=== PATIENT | female | born 1945 | race Caucasian/White ===

== ENCOUNTER 2023-04-17 17:34 | Inpatient (IN) | payer MEDICARE, OTHER ==
[~2023-04-17] VITALS: Ht 162.6 cm; Wt 65.3 kg
[2023-04-17] MEDS ORDERED: IPRA0.2S48 NEB (17:54)
[2023-04-17] MEDS ORDERED: BLOO-1152 MC (17:54)
[2023-04-17] MEDS ORDERED: ALBU2.5V13 IH (17:54)
[2023-04-17] MEDS ORDERED: MEMA10TA PO (17:54)
[2023-04-17] MEDS ORDERED: CITA20TA19 PO (17:54)
[2023-04-17] MEDS ORDERED: METO50TA7 PO (17:54)
[2023-04-17] MEDS ORDERED: ONDA4TAB5 PO (17:54)
[2023-04-17] MEDS ORDERED: BUDE0.5A4 IH (17:54)
[2023-04-17] MEDS ORDERED: ACET-2154 PO (17:54)
[2023-04-17] MEDS ORDERED: PANT40TA2 PO (17:54)
[2023-04-17] MEDS ORDERED: PREG75CA PO (17:54)
[2023-04-17] MEDS ORDERED: NICO-625 TD (17:54)
[2023-04-17] MEDS ORDERED: ENOXAPARIN SODIUM 30 MG/0.3 ML DISP.SYRIN SUBCUT SCH (18:00)
[2023-04-17] MEDS ORDERED: DEXTROSE 50% 50 ML DISP.SYRIN IV PRN (18:00)
[2023-04-17] MEDS ORDERED: ERGOCALCIFEROL 50,000 UNIT CAPSULE PO SCH (18:00)
[2023-04-17 18:21] VITALS: BP 147/70; TEMP 99.1; O2SAT 96
[2023-04-17 20:00] VITALS: BP 148/54; TEMP 99.3; O2SAT 95
[2023-04-17] MEDS ORDERED: ONDANSETRON HCL 4 MG TABLET PO PRN (20:30)
[2023-04-17] MEDS: BLOOD SUGAR DIAGNOSTIC 1 EACH STRIP VI SCH (20:51)
[2023-04-17] MEDS: BUDESONIDE 0.5 MG/2 ML NEBU IH SCH (21:35)
[2023-04-18] VITALS (13 sets, daily range): BP systolic 122–150; BP diastolic 45–58; TEMP 98–99.1; O2SAT 88–99
[2023-04-18] MEDS: ALBUTEROL SULFATE 2.5 MG/ 0.5 ML NEBU IH SCH ×4 (00:49→20:23)
[2023-04-18] MEDS: IPRATROPIUM BROMIDE 0.5 MG/2.5 ML NEBU NEB SCH ×4 (00:49→20:23)
[2023-04-18] MEDS: PANTOPRAZOLE SODIUM 40 MG TABLET.DR PO SCH (06:24)
[2023-04-18 06:35] LABS: BASOPHILS # (AUTO) 0.1 K/UL (0.0-0.2); BASOPHILS % (AUTO) 0.6 % (0.0-2.0); EOSINOPHILS # (AUTO) 0.3 K/uL (0.0-0.7); EOSINOPHILS % (AUTO) 3.8 % (0.0-7.0); HEMATOCRIT 28.7 % (31.2-41.9); HEMOGLOBIN 9.6 g/dL (10.9-14.3); LYMPHOCYTES # (AUTO) 1.7 K/uL (0.8-4.8); LYMPHOCYTES % (AUTO) 19.4 % (20.5-51.5); MEAN CORPUSCULAR HEMOGLOBIN 29.9 uug (24.7-32.8); MEAN CORPUSCULAR HGB CONC 34 g/dL (32.3-35.6); MEAN CORPUSCULAR VOLUME 89.2 fL (75.5-95.3); MONOCYTES # (AUTO) 0.9 K/uL (0.1-1.30); MONOCYTES % (AUTO) 10.1 % (0.0-11.0); NEUTROPHILS # (AUTO) 5.9 K/uL (1.8-8.9); NEUTROPHILS % (AUTO) 66.1 % (38.5-71.5); PLATELET COUNT (AUTO) 227 K/uL (179-408); RED BLOOD CELL COUNT(AUTO) 3.21 MIL/uL (3.63-4.92); RED CELL DISTRIBUTION WIDTH 14.6 % (12.3-17.7)
[2023-04-18] MEDS: BLOOD SUGAR DIAGNOSTIC 1 EACH STRIP VI SCH ×4 (06:38→21:20)
[2023-04-18 07:02] LABS: CALCIUM 8.6 mg/dL (8.5-10.1); CARBON DIOXIDE 31 mmol/L (21-32); CHLORIDE 103 mmol/L (98-107); CREATININE 1.1 mg/dL (0.6-1.3); GLUCOSE 126 mg/dL (74-106); POTASSIUM 3.7 mmol/L (3.5-5.1); SODIUM SERUM 139 mmol/L (136-145); UREA NITROGEN, BLOOD 20 mg/dL (7-18)
[2023-04-18 07:03] LABS: DIFFERENTIAL COMMENT 1
[2023-04-18] MEDS: NICOTINE 21 MG/24HR PATCH TD SCH (09:14)
[2023-04-18] MEDS: ENOXAPARIN SODIUM 30 MG/0.3 ML DISP.SYRIN SUBCUT SCH (09:15)
[2023-04-18] MEDS: CITALOPRAM 20 MG TABLET PO SCH (09:16)
[2023-04-18] MEDS: MEMANTINE HCL 10 MG TABLET PO SCH ×2 (09:16→17:10)
[2023-04-18] MEDS: METOPROLOL SUCCINATE XL 50 MG TAB.SR.24H PO SCH (09:16)
[2023-04-18] MEDS: INSULIN REGULAR, HUMAN 300 UNIT/3 ML VIAL SQ PRN ×2 (09:25→12:23)
[2023-04-18] MEDS: HYDROCODONE/APAP 10-325 MG TABLET PO PRN ×2 (10:30→22:26)
[2023-04-18] MEDS: BUDESONIDE 0.5 MG/2 ML NEBU IH SCH ×2 (13:43→20:23)
[2023-04-18] MEDS: SOD FERRIC GLUC COMPLX/SUCROSE 125 MG in IV NORMAL SALINE 100 ML IV SCH (14:05)
[2023-04-18] MEDS ORDERED: MAGN400T26 PO (16:57)
[2023-04-18] MEDS ORDERED: HYDR25TA4 PO (16:57)
[2023-04-18] MEDS ORDERED: TRELEGY 200-62.5-25 INH (16:57)
[2023-04-18] MEDS ORDERED: HYDR100T27 PO (16:57)
[2023-04-18] MEDS ORDERED: MEMA21CA PO (16:57)
[2023-04-18] MEDS ORDERED: TOLT4CAP PO (16:57)
[2023-04-18] MEDS ORDERED: ASPI81TA31 PO (16:57)
[2023-04-18] MEDS ORDERED: OMEP40CA21 PO (16:57)
[2023-04-18] MEDS ORDERED: LINA72CA PO (16:57)
[2023-04-18] MEDS ORDERED: AMLO-62 PO (16:57)
[2023-04-18] MEDS ORDERED: CALC-1276 PO (16:57)
[2023-04-18] MEDS ORDERED: FAMO40TA7 PO (17:01)
[2023-04-18] MEDS ORDERED: CLOP75TA15 PO (17:01)
[2023-04-18] MEDS ORDERED: ERGO500040 PO (17:16)
[2023-04-18] MEDS ORDERED: EXEN2AUT SQ (17:16)
[2023-04-18] MEDS ORDERED: EVOL140P3 SQ (17:17)
[2023-04-18] MEDS ORDERED: ERGOCALCIFEROL 50,000 UNIT CAPSULE PO SCH (18:00)
[2023-04-18] MEDS: BISACODYL 10 MG SUPP.RECT RC PRN (18:45)
[2023-04-19] VITALS (12 sets, daily range): BP systolic 136–149; BP diastolic 48–61; TEMP 98.1–98.5; O2SAT 95–100
[2023-04-19] MEDS: IPRATROPIUM BROMIDE 0.5 MG/2.5 ML NEBU NEB SCH ×4 (01:32→19:45)
[2023-04-19] MEDS: ALBUTEROL SULFATE 2.5 MG/ 0.5 ML NEBU IH SCH ×4 (01:32→19:45)
[2023-04-19] MEDS: PANTOPRAZOLE SODIUM 40 MG TABLET.DR PO SCH (06:38)
[2023-04-19] MEDS: BLOOD SUGAR DIAGNOSTIC 1 EACH STRIP VI SCH ×4 (06:49→20:32)
[2023-04-19] MEDS: BUDESONIDE 0.5 MG/2 ML NEBU IH SCH ×2 (08:04→19:45)
[2023-04-19] MEDS: INSULIN REGULAR, HUMAN 300 UNIT/3 ML VIAL SQ PRN ×4 (08:43→20:32)
[2023-04-19] MEDS: ERGOCALCIFEROL 50,000 UNIT CAPSULE PO SCH (08:44)
[2023-04-19] MEDS: METOPROLOL SUCCINATE XL 50 MG TAB.SR.24H PO SCH (08:44)
[2023-04-19] MEDS: CITALOPRAM 20 MG TABLET PO SCH (08:44)
[2023-04-19] MEDS: MEMANTINE HCL 10 MG TABLET PO SCH (08:44)
[2023-04-19] MEDS: NICOTINE 21 MG/24HR PATCH TD SCH (08:44)
[2023-04-19] MEDS: ENOXAPARIN SODIUM 30 MG/0.3 ML DISP.SYRIN SUBCUT SCH (08:45)
[2023-04-19] MEDS: SOD FERRIC GLUC COMPLX/SUCROSE 125 MG in IV NORMAL SALINE 100 ML IV SCH (14:19)
[2023-04-19] MEDS: MEMANTINE HCL 5 MG TABLET PO SCH (17:23)
[2023-04-19] MEDS: HYDROCODONE/APAP 10-325 MG TABLET PO PRN (20:38)
[2023-04-20] VITALS (10 sets, daily range): BP systolic 138–155; BP diastolic 41–55; TEMP 98.1–98.5; O2SAT 96–100
[2023-04-20] MEDS: ALBUTEROL SULFATE 2.5 MG/ 0.5 ML NEBU IH SCH ×4 (01:01→19:21)
[2023-04-20] MEDS: IPRATROPIUM BROMIDE 0.5 MG/2.5 ML NEBU NEB SCH ×4 (01:01→19:21)
[2023-04-20] MEDS: PANTOPRAZOLE SODIUM 40 MG TABLET.DR PO SCH (06:08)
[2023-04-20] MEDS: BLOOD SUGAR DIAGNOSTIC 1 EACH STRIP VI SCH ×4 (06:22→20:43)
[2023-04-20 07:48] LABS: BASOPHILS # (AUTO) 0.2 K/UL (0.0-0.2); EOSINOPHILS # (AUTO) 0.3 K/uL (0.0-0.7); EOSINOPHILS % (AUTO) 3.2 % (0.0-7.0); HEMATOCRIT 27.3 % (31.2-41.9); HEMOGLOBIN 8.9 g/dL (10.9-14.3); LYMPHOCYTES # (AUTO) 2.3 K/uL (0.8-4.8); LYMPHOCYTES % (AUTO) 21.6 % (20.5-51.5); MEAN CORPUSCULAR HEMOGLOBIN 29.2 uug (24.7-32.8); MEAN CORPUSCULAR HGB CONC 33 g/dL (32.3-35.6); MEAN CORPUSCULAR VOLUME 89.4 fL (75.5-95.3); MONOCYTES % (AUTO) 9.5 % (0.0-11.0); NEUTROPHILS # (AUTO) 6.8 K/uL (1.8-8.9); NEUTROPHILS % (AUTO) 63.7 % (38.5-71.5); PLATELET COUNT (AUTO) 226 K/uL (179-408); RED BLOOD CELL COUNT(AUTO) 3.06 MIL/uL (3.63-4.92); RED CELL DISTRIBUTION WIDTH 14.9 % (12.3-17.7); WHITE BLOOD COUNT (AUTO) 10.7 K/uL (3.8-11.8)
[2023-04-20] MEDS: BUDESONIDE 0.5 MG/2 ML NEBU IH SCH ×2 (07:55→19:32)
[2023-04-20 08:04] LABS: DIFFERENTIAL COMMENT 1
[2023-04-20] MEDS: CITALOPRAM 20 MG TABLET PO SCH (08:46)
[2023-04-20] MEDS: OXYCODONE HCL 5 MG TABLET PO SCH ×2 (08:46→13:21)
[2023-04-20] MEDS: MEMANTINE HCL 10 MG TABLET PO SCH (08:46)
[2023-04-20] MEDS: METOPROLOL SUCCINATE XL 50 MG TAB.SR.24H PO SCH (08:46)
[2023-04-20] MEDS: ENOXAPARIN SODIUM 30 MG/0.3 ML DISP.SYRIN SUBCUT SCH (08:49)
[2023-04-20] MEDS: NICOTINE 21 MG/24HR PATCH TD SCH (08:49)
[2023-04-20 08:54] LABS: ALANINE AMINOTRANSFERASE 28 U/L (14-59); ALBUMIN 2.3 g/dL (3.4-5.0); ALKALINE PHOSPHATASE 90 U/L (50-136); ASPARTATE AMINOTRANSFERASE 23 U/L (15-37); BILIRUBIN,TOTAL 0.4 mg/dL (0.2-1.0); CALCIUM 8.6 mg/dL (8.5-10.1); CARBON DIOXIDE 31 mmol/L (21-32); CHLORIDE 105 mmol/L (98-107); CHOLESTEROL 144 mg/dL (<200); CREATININE 1.3 mg/dL (0.6-1.3); GLUCOSE 107 mg/dL (74-106); HDL CHOLESTEROL 32 mg/dL (40-60); MAGNESIUM 1.9 mg/dL (1.8-2.4); POTASSIUM 3.2 mmol/L (3.5-5.1); SODIUM SERUM 145 mmol/L (136-145); TOTAL PROTEIN, SERUM 6.1 g/dL (6.4-8.2); TRIGLYCERIDES 162 MG/DL (30-150); UREA NITROGEN, BLOOD 24 mg/dL (7-18)
[2023-04-20 10:32] LABS: IRON, SERUM 61 ug/dL (50-175)
[2023-04-20] MEDS: MEMANTINE HCL 5 MG TABLET PO SCH (17:11)
[2023-04-20] MEDS: BISACODYL 10 MG SUPP.RECT RC PRN (20:00)
[2023-04-21] VITALS (12 sets, daily range): BP systolic 125–149; BP diastolic 52–59; TEMP 98.1–99; O2SAT 91–99
[2023-04-21] MEDS: IPRATROPIUM BROMIDE 0.5 MG/2.5 ML NEBU NEB SCH ×4 (01:18→19:46)
[2023-04-21] MEDS: ALBUTEROL SULFATE 2.5 MG/ 0.5 ML NEBU IH SCH ×4 (01:18→19:46)
[2023-04-21] MEDS: HYDROCODONE/APAP 10-325 MG TABLET PO PRN ×2 (01:29→20:43)
[2023-04-21] MEDS: PANTOPRAZOLE SODIUM 40 MG TABLET.DR PO SCH (06:12)
[2023-04-21] MEDS: BLOOD SUGAR DIAGNOSTIC 1 EACH STRIP VI SCH ×3 (06:22→16:41)
[2023-04-21] MEDS: BUDESONIDE 0.5 MG/2 ML NEBU IH SCH ×2 (07:41→19:46)
[2023-04-21] MEDS: OXYCODONE HCL 5 MG TABLET PO SCH ×2 (08:56→13:21)
[2023-04-21] MEDS: CITALOPRAM 20 MG TABLET PO SCH (08:57)
[2023-04-21] MEDS: MEMANTINE HCL 10 MG TABLET PO SCH (08:57)
[2023-04-21] MEDS: NICOTINE 21 MG/24HR PATCH TD SCH (08:57)
[2023-04-21] MEDS: METOPROLOL SUCCINATE XL 50 MG TAB.SR.24H PO SCH (08:57)
[2023-04-21] MEDS: ENOXAPARIN SODIUM 30 MG/0.3 ML DISP.SYRIN SUBCUT SCH (09:01)
[2023-04-21] MEDS: INSULIN REGULAR, HUMAN 300 UNIT/3 ML VIAL SQ PRN (16:54)
[2023-04-21] MEDS: MEMANTINE HCL 5 MG TABLET PO SCH (18:11)
[2023-04-22] VITALS (13 sets, daily range): BP systolic 109–153; BP diastolic 44–95; TEMP 98–98.8; O2SAT 92–100
[2023-04-22] MEDS: IPRATROPIUM BROMIDE 0.5 MG/2.5 ML NEBU NEB SCH ×4 (01:13→20:03)
[2023-04-22] MEDS: ALBUTEROL SULFATE 2.5 MG/ 0.5 ML NEBU IH SCH ×4 (01:13→20:03)
[2023-04-22] MEDS: PANTOPRAZOLE SODIUM 40 MG TABLET.DR PO SCH (05:45)
[2023-04-22] MEDS: BUDESONIDE 0.5 MG/2 ML NEBU IH SCH ×2 (08:05→20:03)
[2023-04-22] MEDS: CITALOPRAM 20 MG TABLET PO SCH (08:37)
[2023-04-22] MEDS: MEMANTINE HCL 10 MG TABLET PO SCH (08:37)
[2023-04-22] MEDS: OXYCODONE HCL 5 MG TABLET PO SCH ×2 (08:37→13:00)
[2023-04-22] MEDS: METOPROLOL SUCCINATE XL 50 MG TAB.SR.24H PO SCH (08:38)
[2023-04-22] MEDS: NICOTINE 21 MG/24HR PATCH TD SCH (08:38)
[2023-04-22] MEDS: ENOXAPARIN SODIUM 30 MG/0.3 ML DISP.SYRIN SUBCUT SCH (08:41)
[2023-04-22] MEDS: CLOPIDOGREL 75 MG TABLET PO SCH (10:45)
[2023-04-22] MEDS: HYDROCHLOROTHIAZIDE 25 MG TABLET PO SCH (10:45)
[2023-04-22] MEDS: TOLTERODINE LA 2 MG CAP.SR.24H PO SCH (10:47)
[2023-04-22] MEDS: MEMANTINE HCL 5 MG TABLET PO SCH (17:21)
[2023-04-22] MEDS: CALCIUM CARB/VITAMIN D 500MG-200UNITS TABLET PO SCH (17:21)
[2023-04-22] MEDS: HYDROCODONE/APAP 10-325 MG TABLET PO PRN (20:21)
[2023-04-22] MEDS: MAGNESIUM OXIDE 400 MG TABLET PO SCH (20:21)
[2023-04-23] VITALS (12 sets, daily range): BP systolic 137–171; BP diastolic 53–65; TEMP 97.9–98.3; O2SAT 92–100
[2023-04-23] MEDS: IPRATROPIUM BROMIDE 0.5 MG/2.5 ML NEBU NEB SCH ×4 (02:25→19:44)
[2023-04-23] MEDS: ALBUTEROL SULFATE 2.5 MG/ 0.5 ML NEBU IH SCH ×4 (02:25→19:44)
[2023-04-23] MEDS: PANTOPRAZOLE SODIUM 40 MG TABLET.DR PO SCH (05:31)
[2023-04-23] MEDS: METOPROLOL SUCCINATE XL 50 MG TAB.SR.24H PO SCH ×3 (06:04→09:13)
[2023-04-23] MEDS: BUDESONIDE 0.5 MG/2 ML NEBU IH SCH ×2 (08:13→19:44)
[2023-04-23] MEDS: ENOXAPARIN SODIUM 30 MG/0.3 ML DISP.SYRIN SUBCUT SCH (09:03)
[2023-04-23] MEDS: CLOPIDOGREL 75 MG TABLET PO SCH (09:03)
[2023-04-23] MEDS: MEMANTINE HCL 10 MG TABLET PO SCH (09:05)
[2023-04-23] MEDS: TOLTERODINE LA 2 MG CAP.SR.24H PO SCH (09:05)
[2023-04-23] MEDS: ASPIRIN EC 81 MG TABLET.DR PO SCH (09:05)
[2023-04-23] MEDS: CITALOPRAM 20 MG TABLET PO SCH (09:05)
[2023-04-23] MEDS: CALCIUM CARB/VITAMIN D 500MG-200UNITS TABLET PO SCH ×2 (09:05→17:27)
[2023-04-23] MEDS: HYDROCHLOROTHIAZIDE 25 MG TABLET PO SCH (09:05)
[2023-04-23] MEDS: NICOTINE 21 MG/24HR PATCH TD SCH (09:06)
[2023-04-23] MEDS: GLUCERNA SHAKE 237 ML CAN PO SCH (09:06)
[2023-04-23] MEDS: OXYCODONE HCL 5 MG TABLET PO SCH ×2 (09:06→13:26)
[2023-04-23] MEDS: AMLODIPINE 5 MG TABLET PO SCH (10:49)
[2023-04-23] MEDS: MEMANTINE HCL 5 MG TABLET PO SCH (17:27)
[2023-04-23] MEDS: MAGNESIUM OXIDE 400 MG TABLET PO SCH (20:40)
[2023-04-24] VITALS (13 sets, daily range): BP systolic 77–179; BP diastolic 53–70; TEMP 97.8–98.9; O2SAT 94–100
[2023-04-24] MEDS: IPRATROPIUM BROMIDE 0.5 MG/2.5 ML NEBU NEB SCH ×4 (01:30→19:52)
[2023-04-24] MEDS: ALBUTEROL SULFATE 2.5 MG/ 0.5 ML NEBU IH SCH ×4 (01:30→19:52)
[2023-04-24] MEDS: PANTOPRAZOLE SODIUM 40 MG TABLET.DR PO SCH (06:47)
[2023-04-24] MEDS: BUDESONIDE 0.5 MG/2 ML NEBU IH SCH ×2 (07:29→19:52)
[2023-04-24] MEDS: OXYCODONE HCL 5 MG TABLET PO SCH ×2 (09:00→13:00)
[2023-04-24] MEDS: CALCIUM CARB/VITAMIN D 500MG-200UNITS TABLET PO SCH ×2 (09:00→17:07)
[2023-04-24] MEDS: TOLTERODINE LA 2 MG CAP.SR.24H PO SCH (09:00)
[2023-04-24] MEDS: METOPROLOL SUCCINATE XL 50 MG TAB.SR.24H PO SCH (09:00)
[2023-04-24] MEDS: ASPIRIN EC 81 MG TABLET.DR PO SCH (09:00)
[2023-04-24] MEDS: MEMANTINE HCL 10 MG TABLET PO SCH (09:01)
[2023-04-24] MEDS: NICOTINE 21 MG/24HR PATCH TD SCH (09:01)
[2023-04-24] MEDS: CITALOPRAM 20 MG TABLET PO SCH (09:01)
[2023-04-24] MEDS: CLOPIDOGREL 75 MG TABLET PO SCH (09:01)
[2023-04-24] MEDS: ENOXAPARIN SODIUM 30 MG/0.3 ML DISP.SYRIN SUBCUT SCH (09:03)
[2023-04-24] MEDS: AMLODIPINE 5 MG TABLET PO SCH (09:03)
[2023-04-24] MEDS: GLUCERNA SHAKE 237 ML CAN PO SCH (09:04)
[2023-04-24] MEDS: HYDROCHLOROTHIAZIDE 25 MG TABLET PO SCH (09:04)
[2023-04-24] MEDS: hydrALAZINE HCL 50 MG TABLET PO SCH ×2 (13:43→21:32)
[2023-04-24] MEDS: MEMANTINE HCL 5 MG TABLET PO SCH (17:07)
[2023-04-24] MEDS: MAGNESIUM OXIDE 400 MG TABLET PO SCH (20:32)
[2023-04-25] VITALS (12 sets, daily range): BP systolic 107–141; BP diastolic 49–79; TEMP 97.9–98.4; O2SAT 94–100
[2023-04-25] MEDS: IPRATROPIUM BROMIDE 0.5 MG/2.5 ML NEBU NEB SCH ×4 (01:45→19:50)
[2023-04-25] MEDS: ALBUTEROL SULFATE 2.5 MG/ 0.5 ML NEBU IH SCH ×4 (01:45→19:50)
[2023-04-25] MEDS: hydrALAZINE HCL 50 MG TABLET PO SCH ×3 (05:50→21:49)
[2023-04-25] MEDS: PANTOPRAZOLE SODIUM 40 MG TABLET.DR PO SCH (06:11)
[2023-04-25] MEDS: BUDESONIDE 0.5 MG/2 ML NEBU IH SCH ×2 (07:30→19:50)
[2023-04-25 07:34] LABS: BASOPHILS # (AUTO) 0.1 K/UL (0.0-0.2); EOSINOPHILS # (AUTO) 0.3 K/uL (0.0-0.7); EOSINOPHILS % (AUTO) 2.8 % (0.0-7.0); HEMATOCRIT 32.7 % (31.2-41.9); HEMOGLOBIN 10.9 g/dL (10.9-14.3); LYMPHOCYTES # (AUTO) 2.8 K/uL (0.8-4.8); LYMPHOCYTES % (AUTO) 24.2 % (20.5-51.5); MEAN CORPUSCULAR HEMOGLOBIN 29.9 uug (24.7-32.8); MEAN CORPUSCULAR HGB CONC 33 g/dL (32.3-35.6); MEAN CORPUSCULAR VOLUME 90.1 fL (75.5-95.3); MONOCYTES # (AUTO) 0.8 K/uL (0.1-1.30); MONOCYTES % (AUTO) 7.4 % (0.0-11.0); NEUTROPHILS # (AUTO) 7.4 K/uL (1.8-8.9); NEUTROPHILS % (AUTO) 64.6 % (38.5-71.5); PLATELET COUNT (AUTO) 367 K/uL (179-408); RED BLOOD CELL COUNT(AUTO) 3.63 MIL/uL (3.63-4.92); RED CELL DISTRIBUTION WIDTH 15.4 % (12.3-17.7); WHITE BLOOD COUNT (AUTO) 11.4 K/uL (3.8-11.8)
[2023-04-25 07:50] LABS: ALANINE AMINOTRANSFERASE 28 U/L (14-59); ALKALINE PHOSPHATASE 132 U/L (50-136); ASPARTATE AMINOTRANSFERASE 18 U/L (15-37); BILIRUBIN,TOTAL 0.5 mg/dL (0.2-1.0); CALCIUM 9.5 mg/dL (8.5-10.1); CARBON DIOXIDE 28 mmol/L (21-32); CHLORIDE 101 mmol/L (98-107); CREATININE 1.5 mg/dL (0.6-1.3); GLUCOSE 131 mg/dL (74-106); PHOSPHOROUS 4.6 mg/dL (2.5-4.9); SODIUM SERUM 139 mmol/L (136-145); TOTAL PROTEIN, SERUM 7.3 g/dL (6.4-8.2); UREA NITROGEN, BLOOD 27 mg/dL (7-18)
[2023-04-25 07:55] LABS: DIFFERENTIAL COMMENT 1
[2023-04-25] MEDS: OXYCODONE HCL 5 MG TABLET PO SCH ×2 (08:00→12:53)
[2023-04-25 08:02] LABS: POTASSIUM 4.1 mmol/L (3.5-5.1)
[2023-04-25] MEDS: AMLODIPINE 5 MG TABLET PO SCH (09:00)
[2023-04-25] MEDS: TOLTERODINE LA 2 MG CAP.SR.24H PO SCH (09:04)
[2023-04-25] MEDS: MEMANTINE HCL 10 MG TABLET PO SCH (09:04)
[2023-04-25] MEDS: ASPIRIN EC 81 MG TABLET.DR PO SCH (09:05)
[2023-04-25] MEDS: CALCIUM CARB/VITAMIN D 500MG-200UNITS TABLET PO SCH ×2 (09:05→18:00)
[2023-04-25] MEDS: HYDROCHLOROTHIAZIDE 25 MG TABLET PO SCH (09:05)
[2023-04-25] MEDS: CLOPIDOGREL 75 MG TABLET PO SCH (09:06)
[2023-04-25] MEDS: CITALOPRAM 20 MG TABLET PO SCH (09:06)
[2023-04-25] MEDS: NICOTINE 21 MG/24HR PATCH TD SCH (09:08)
[2023-04-25] MEDS: ENOXAPARIN SODIUM 30 MG/0.3 ML DISP.SYRIN SUBCUT SCH (09:08)
[2023-04-25] MEDS: GLUCERNA SHAKE 237 ML CAN PO SCH (09:09)
[2023-04-25] MEDS: METOPROLOL SUCCINATE XL 50 MG TAB.SR.24H PO SCH (09:14)
[2023-04-25] MEDS ORDERED: IV NORMAL SALINE 500 ML BAG IV ONE (13:45)
[2023-04-25] MEDS: MEMANTINE HCL 5 MG TABLET PO SCH (18:00)
[2023-04-25] MEDS: MAGNESIUM OXIDE 400 MG TABLET PO SCH (21:48)
[2023-04-26] VITALS (10 sets, daily range): BP systolic 109–136; BP diastolic 48–59; TEMP 97.9–98.1; O2SAT 94–99
[2023-04-26] MEDS: HYDROCODONE/APAP 10-325 MG TABLET PO PRN (01:56)
[2023-04-26] MEDS: IPRATROPIUM BROMIDE 0.5 MG/2.5 ML NEBU NEB SCH ×4 (02:03→19:35)
[2023-04-26] MEDS: ALBUTEROL SULFATE 2.5 MG/ 0.5 ML NEBU IH SCH ×4 (02:03→19:35)
[2023-04-26] MEDS: hydrALAZINE HCL 50 MG TABLET PO SCH (06:00)
[2023-04-26] MEDS: PANTOPRAZOLE SODIUM 40 MG TABLET.DR PO SCH (07:11)
[2023-04-26] MEDS: BUDESONIDE 0.5 MG/2 ML NEBU IH SCH ×2 (07:21→19:35)
[2023-04-26] MEDS: ASPIRIN EC 81 MG TABLET.DR PO SCH (08:35)
[2023-04-26] MEDS: AMLODIPINE 5 MG TABLET PO SCH (08:35)
[2023-04-26] MEDS: MEMANTINE HCL 10 MG TABLET PO SCH (08:36)
[2023-04-26] MEDS: OXYCODONE HCL 5 MG TABLET PO SCH ×4 (08:38→13:41)
[2023-04-26] MEDS: METOPROLOL SUCCINATE XL 50 MG TAB.SR.24H PO SCH (08:38)
[2023-04-26] MEDS: CLOPIDOGREL 75 MG TABLET PO SCH (08:39)
[2023-04-26] MEDS: CALCIUM CARB/VITAMIN D 500MG-200UNITS TABLET PO SCH ×2 (08:39→17:06)
[2023-04-26] MEDS: TOLTERODINE LA 2 MG CAP.SR.24H PO SCH (08:39)
[2023-04-26] MEDS: CITALOPRAM 20 MG TABLET PO SCH (08:39)
[2023-04-26] MEDS: ERGOCALCIFEROL 50,000 UNIT CAPSULE PO SCH (08:39)
[2023-04-26] MEDS: NEPRO (VANILLA) 237 ML CAN PO SCH (08:40)
[2023-04-26] MEDS: HYDROCHLOROTHIAZIDE 25 MG TABLET PO SCH (08:40)
[2023-04-26] MEDS: ENOXAPARIN SODIUM 30 MG/0.3 ML DISP.SYRIN SUBCUT SCH (08:41)
[2023-04-26] MEDS: NICOTINE 21 MG/24HR PATCH TD SCH (08:41)
[2023-04-26 13:22] LABS: BASOPHILS # (AUTO) 0.1 K/UL (0.0-0.2); BASOPHILS % (AUTO) 0.5 % (0.0-2.0); EOSINOPHILS # (AUTO) 0.4 K/uL (0.0-0.7); EOSINOPHILS % (AUTO) 2.8 % (0.0-7.0); HEMATOCRIT 32.4 % (31.2-41.9); HEMOGLOBIN 10.6 g/dL (10.9-14.3); LYMPHOCYTES # (AUTO) 2.3 K/uL (0.8-4.8); LYMPHOCYTES % (AUTO) 16.4 % (20.5-51.5); MEAN CORPUSCULAR HEMOGLOBIN 29.5 uug (24.7-32.8); MEAN CORPUSCULAR HGB CONC 33 g/dL (32.3-35.6); MEAN CORPUSCULAR VOLUME 90.5 fL (75.5-95.3); MONOCYTES # (AUTO) 0.9 K/uL (0.1-1.30); MONOCYTES % (AUTO) 6.4 % (0.0-11.0); NEUTROPHILS # (AUTO) 10.4 K/uL (1.8-8.9); NEUTROPHILS % (AUTO) 73.9 % (38.5-71.5); PLATELET COUNT (AUTO) 417 K/uL (179-408); RED BLOOD CELL COUNT(AUTO) 3.58 MIL/uL (3.63-4.92); RED CELL DISTRIBUTION WIDTH 15.8 % (12.3-17.7); WHITE BLOOD COUNT (AUTO) 14.1 K/uL (3.8-11.8)
[2023-04-26 13:32] LABS: CALCIUM 9.2 mg/dL (8.5-10.1); CARBON DIOXIDE 27 mmol/L (21-32); CHLORIDE 102 mmol/L (98-107); GLUCOSE 153 mg/dL (74-106); SODIUM SERUM 137 mmol/L (136-145); UREA NITROGEN, BLOOD 32 mg/dL (7-18)
[2023-04-26 13:35] LABS: DIFFERENTIAL COMMENT 1
[2023-04-26] MEDS: MEMANTINE HCL 5 MG TABLET PO SCH (17:06)
[2023-04-26] MEDS: CEFTRIAXONE 1 G in IV DEXTROSE 5% 50 ML IV SCH (17:07)
[2023-04-26] MEDS: IV NS 1000 ML 1,000 ML IV PRN (17:07)
[2023-04-26] MEDS: MAGNESIUM OXIDE 400 MG TABLET PO SCH (20:14)
[2023-04-27] VITALS (9 sets, daily range): BP systolic 115–148; BP diastolic 45–77; TEMP 97.6–98; O2SAT 97–100
[2023-04-27] MEDS: IPRATROPIUM BROMIDE 0.5 MG/2.5 ML NEBU NEB SCH ×4 (01:02→19:37)
[2023-04-27] MEDS: ALBUTEROL SULFATE 2.5 MG/ 0.5 ML NEBU IH SCH ×4 (01:02→19:37)
[2023-04-27] MEDS: PANTOPRAZOLE SODIUM 40 MG TABLET.DR PO SCH (06:06)
[2023-04-27] MEDS: BUDESONIDE 0.5 MG/2 ML NEBU IH SCH ×2 (07:28→19:37)
[2023-04-27 07:42] LABS: BASOPHILS # (AUTO) 0.1 K/UL (0.0-0.2); BASOPHILS % (AUTO) 0.6 % (0.0-2.0); EOSINOPHILS # (AUTO) 0.4 K/uL (0.0-0.7); HEMATOCRIT 31.1 % (31.2-41.9); HEMOGLOBIN 10.3 g/dL (10.9-14.3); LYMPHOCYTES # (AUTO) 2.2 K/uL (0.8-4.8); MEAN CORPUSCULAR HGB CONC 33 g/dL (32.3-35.6); MEAN CORPUSCULAR VOLUME 90.4 fL (75.5-95.3); MONOCYTES # (AUTO) 0.8 K/uL (0.1-1.30); NEUTROPHILS # (AUTO) 7.6 K/uL (1.8-8.9); NEUTROPHILS % (AUTO) 68.4 % (38.5-71.5); PLATELET COUNT (AUTO) 381 K/uL (179-408); RED BLOOD CELL COUNT(AUTO) 3.44 MIL/uL (3.63-4.92); RED CELL DISTRIBUTION WIDTH 15.9 % (12.3-17.7); WHITE BLOOD COUNT (AUTO) 11.1 K/uL (3.8-11.8)
[2023-04-27 07:57] LABS: ALANINE AMINOTRANSFERASE 24 U/L (14-59); ALBUMIN 2.9 g/dL (3.4-5.0); ALKALINE PHOSPHATASE 122 U/L (50-136); ASPARTATE AMINOTRANSFERASE 13 U/L (15-37); BILIRUBIN,TOTAL 0.3 mg/dL (0.2-1.0); CALCIUM 8.9 mg/dL (8.5-10.1); CARBON DIOXIDE 24 mmol/L (21-32); CHLORIDE 104 mmol/L (98-107); CREATININE 1.8 mg/dL (0.6-1.3); GLUCOSE 113 mg/dL (74-106); MAGNESIUM 1.9 mg/dL (1.8-2.4); PHOSPHOROUS 4.4 mg/dL (2.5-4.9); POTASSIUM 3.7 mmol/L (3.5-5.1); SODIUM SERUM 140 mmol/L (136-145); TOTAL PROTEIN, SERUM 6.8 g/dL (6.4-8.2); UREA NITROGEN, BLOOD 28 mg/dL (7-18)
[2023-04-27] MEDS ORDERED: OXYCODONE HCL 5 MG TABLET PO SCH (08:00)
[2023-04-27 08:22] LABS: DIFFERENTIAL COMMENT 1
[2023-04-27] MEDS: ASPIRIN EC 81 MG TABLET.DR PO SCH (08:37)
[2023-04-27] MEDS: TOLTERODINE LA 2 MG CAP.SR.24H PO SCH (08:37)
[2023-04-27] MEDS: CALCIUM CARB/VITAMIN D 500MG-200UNITS TABLET PO SCH ×2 (08:37→16:59)
[2023-04-27] MEDS: NEPRO (VANILLA) 237 ML CAN PO SCH (08:38)
[2023-04-27] MEDS: CLOPIDOGREL 75 MG TABLET PO SCH (08:38)
[2023-04-27] MEDS: MEMANTINE HCL 10 MG TABLET PO SCH (08:38)
[2023-04-27] MEDS: OXYCODONE HCL 5 MG TABLET PO SCH ×2 (08:38→12:16)
[2023-04-27] MEDS: METOPROLOL SUCCINATE XL 50 MG TAB.SR.24H PO SCH (08:38)
[2023-04-27] MEDS: AMLODIPINE 5 MG TABLET PO SCH (08:38)
[2023-04-27] MEDS: CITALOPRAM 20 MG TABLET PO SCH (08:38)
[2023-04-27] MEDS: ENOXAPARIN SODIUM 30 MG/0.3 ML DISP.SYRIN SUBCUT SCH (08:39)
[2023-04-27] MEDS: NICOTINE 21 MG/24HR PATCH TD SCH (08:39)
[2023-04-27] MEDS: IV NS 1000 ML 1,000 ML IV PRN (08:40)
[2023-04-27 08:58] LABS: CREATINE KINASE, TOTAL 26 U/L (26-192)
[2023-04-27] MEDS: CEFTRIAXONE 1 G in IV DEXTROSE 5% 50 ML IV SCH (16:59)
[2023-04-27] MEDS: MEMANTINE HCL 5 MG TABLET PO SCH (17:03)
[2023-04-27] MEDS: MAGNESIUM OXIDE 400 MG TABLET PO SCH (20:46)
[2023-04-28] VITALS (11 sets, daily range): BP systolic 124–141; BP diastolic 47–72; TEMP 98.1–98.2; O2SAT 95–99
[2023-04-28] MEDS: ALBUTEROL SULFATE 2.5 MG/ 0.5 ML NEBU IH SCH ×4 (00:56→23:21)
[2023-04-28] MEDS: IPRATROPIUM BROMIDE 0.5 MG/2.5 ML NEBU NEB SCH ×4 (00:56→23:21)
[2023-04-28] MEDS: PANTOPRAZOLE SODIUM 40 MG TABLET.DR PO SCH (06:12)
[2023-04-28] MEDS: BUDESONIDE 0.5 MG/2 ML NEBU IH SCH ×2 (07:30→23:21)
[2023-04-28 08:29] LABS: ALANINE AMINOTRANSFERASE 20 U/L (14-59); ALKALINE PHOSPHATASE 131 U/L (50-136); ASPARTATE AMINOTRANSFERASE 15 U/L (15-37); BILIRUBIN,TOTAL 0.3 mg/dL (0.2-1.0); CALCIUM 9.1 mg/dL (8.5-10.1); CARBON DIOXIDE 26 mmol/L (21-32); CHLORIDE 104 mmol/L (98-107); CREATININE 1.6 mg/dL (0.6-1.3); GLUCOSE 114 mg/dL (74-106); MAGNESIUM 1.9 mg/dL (1.8-2.4); PHOSPHOROUS 4.1 mg/dL (2.5-4.9); POTASSIUM 3.8 mmol/L (3.5-5.1); SODIUM SERUM 140 mmol/L (136-145); TOTAL PROTEIN, SERUM 7.1 g/dL (6.4-8.2); UREA NITROGEN, BLOOD 29 mg/dL (7-18)
[2023-04-28 08:30] LABS: BASOPHILS # (AUTO) 0.1 K/UL (0.0-0.2); BASOPHILS % (AUTO) 0.7 % (0.0-2.0); EOSINOPHILS # (AUTO) 0.4 K/uL (0.0-0.7); EOSINOPHILS % (AUTO) 3.8 % (0.0-7.0); HEMATOCRIT 32.1 % (31.2-41.9); HEMOGLOBIN 10.5 g/dL (10.9-14.3); LYMPHOCYTES # (AUTO) 2.4 K/uL (0.8-4.8); LYMPHOCYTES % (AUTO) 23.2 % (20.5-51.5); MEAN CORPUSCULAR HEMOGLOBIN 29.5 uug (24.7-32.8); MEAN CORPUSCULAR HGB CONC 33 g/dL (32.3-35.6); MEAN CORPUSCULAR VOLUME 90.5 fL (75.5-95.3); MONOCYTES # (AUTO) 0.7 K/uL (0.1-1.30); MONOCYTES % (AUTO) 6.5 % (0.0-11.0); NEUTROPHILS # (AUTO) 6.9 K/uL (1.8-8.9); NEUTROPHILS % (AUTO) 65.8 % (38.5-71.5); PLATELET COUNT (AUTO) 403 K/uL (179-408); RED BLOOD CELL COUNT(AUTO) 3.55 MIL/uL (3.63-4.92); WHITE BLOOD COUNT (AUTO) 10.5 K/uL (3.8-11.8)
[2023-04-28] MEDS: ASPIRIN EC 81 MG TABLET.DR PO SCH (08:34)
[2023-04-28] MEDS: MEMANTINE HCL 10 MG TABLET PO SCH (08:34)
[2023-04-28] MEDS: CITALOPRAM 20 MG TABLET PO SCH (08:34)
[2023-04-28] MEDS: CALCIUM CARB/VITAMIN D 500MG-200UNITS TABLET PO SCH ×2 (08:35→16:30)
[2023-04-28] MEDS: TOLTERODINE LA 2 MG CAP.SR.24H PO SCH (08:35)
[2023-04-28] MEDS: OXYCODONE HCL 5 MG TABLET PO SCH ×2 (08:35→13:11)
[2023-04-28] MEDS: CLOPIDOGREL 75 MG TABLET PO SCH (08:35)
[2023-04-28 08:36] LABS: DIFFERENTIAL COMMENT 1
[2023-04-28] MEDS: METOPROLOL SUCCINATE XL 50 MG TAB.SR.24H PO SCH (08:36)
[2023-04-28] MEDS: AMLODIPINE 5 MG TABLET PO SCH (08:36)
[2023-04-28] MEDS: NEPRO (VANILLA) 237 ML CAN PO SCH (08:36)
[2023-04-28] MEDS: ENOXAPARIN SODIUM 30 MG/0.3 ML DISP.SYRIN SUBCUT SCH (08:37)
[2023-04-28] MEDS: NICOTINE 21 MG/24HR PATCH TD SCH (08:38)
[2023-04-28 10:06] LABS: A/G RATIO 0.7 (0.7-1.7); ALBUMIN 2.6 g/dL (2.9-4.4); ALPHA-1-GLOBULIN 0.3 g/dL (0.0-0.4); ALPHA-2-GLOBULIN 0.9 g/dL (0.4-1.0); BETA GLOBULIN 0.9 g/dL (0.7-1.3); GAMMA GLOBULIN 1.5 g/dL (0.4-1.8); GLOBULIN, TOTAL 3.6 g/dL (2.2-3.9); M-SPIKE 0.7 g/dL (Not Observed)
[2023-04-28] MEDS: IV NS 1000 ML 1,000 ML IV PRN (14:35)
[2023-04-28] MEDS: CEFTRIAXONE 1 G in IV DEXTROSE 5% 50 ML IV SCH (16:59)
[2023-04-28] MEDS: MEMANTINE HCL 5 MG TABLET PO SCH (17:27)
[2023-04-28] MEDS: MAGNESIUM OXIDE 400 MG TABLET PO SCH (20:39)
[2023-04-29] VITALS (14 sets, daily range): BP systolic 130–158; BP diastolic 54–80; TEMP 97.6–98.5; O2SAT 95–99
[2023-04-29] MEDS: IPRATROPIUM BROMIDE 0.5 MG/2.5 ML NEBU NEB SCH ×4 (00:59→20:55)
[2023-04-29] MEDS: ALBUTEROL SULFATE 2.5 MG/ 0.5 ML NEBU IH SCH ×4 (01:00→20:56)
[2023-04-29] MEDS: PANTOPRAZOLE SODIUM 40 MG TABLET.DR PO SCH (06:15)
[2023-04-29] MEDS: BUDESONIDE 0.5 MG/2 ML NEBU IH SCH ×2 (07:48→20:56)
[2023-04-29] MEDS: METOPROLOL SUCCINATE XL 50 MG TAB.SR.24H PO SCH (08:24)
[2023-04-29] MEDS: CALCIUM CARB/VITAMIN D 500MG-200UNITS TABLET PO SCH ×2 (08:25→17:05)
[2023-04-29] MEDS: OXYCODONE HCL 5 MG TABLET PO SCH ×2 (08:25→12:40)
[2023-04-29] MEDS: CITALOPRAM 20 MG TABLET PO SCH (08:25)
[2023-04-29] MEDS: CLOPIDOGREL 75 MG TABLET PO SCH (08:25)
[2023-04-29] MEDS: MEMANTINE HCL 10 MG TABLET PO SCH (08:25)
[2023-04-29] MEDS: TOLTERODINE LA 2 MG CAP.SR.24H PO SCH (08:25)
[2023-04-29] MEDS: NICOTINE 21 MG/24HR PATCH TD SCH (08:26)
[2023-04-29] MEDS: AMLODIPINE 5 MG TABLET PO SCH (08:26)
[2023-04-29] MEDS: MIRALAX 17 GM POWD.PACK PO SCH (08:26)
[2023-04-29] MEDS: ASPIRIN EC 81 MG TABLET.DR PO SCH (08:26)
[2023-04-29] MEDS: ENOXAPARIN SODIUM 30 MG/0.3 ML DISP.SYRIN SUBCUT SCH (08:27)
[2023-04-29] MEDS: NEPRO (VANILLA) 237 ML CAN PO SCH (08:28)
[2023-04-29] MEDS: CEFTRIAXONE 1 G in IV DEXTROSE 5% 50 ML IV SCH (17:05)
[2023-04-29] MEDS: MEMANTINE HCL 5 MG TABLET PO SCH (17:05)
[2023-04-29] MEDS: BISACODYL 10 MG SUPP.RECT RC PRN (18:13)
[2023-04-29] MEDS: MAGNESIUM OXIDE 400 MG TABLET PO SCH (20:44)
[2023-04-29] MEDS: HYDROCODONE/APAP 10-325 MG TABLET PO PRN (21:05)
[2023-04-30] VITALS (14 sets, daily range): BP systolic 132–157; BP diastolic 55–65; TEMP 97.2–98.1; O2SAT 96–99
[2023-04-30] MEDS: IV NS 1000 ML 1,000 ML IV PRN ×2 (02:13→16:51)
[2023-04-30] MEDS: ALBUTEROL SULFATE 2.5 MG/ 0.5 ML NEBU IH SCH ×4 (02:48→20:26)
[2023-04-30] MEDS: IPRATROPIUM BROMIDE 0.5 MG/2.5 ML NEBU NEB SCH ×4 (02:48→20:27)
[2023-04-30] MEDS: PANTOPRAZOLE SODIUM 40 MG TABLET.DR PO SCH (06:15)
[2023-04-30 06:26] LABS: BASOPHILS # (AUTO) 0.1 K/UL (0.0-0.2); BASOPHILS % (AUTO) 0.9 % (0.0-2.0); EOSINOPHILS # (AUTO) 0.4 K/uL (0.0-0.7); EOSINOPHILS % (AUTO) 4.7 % (0.0-7.0); HEMATOCRIT 31.7 % (31.2-41.9); HEMOGLOBIN 10.5 g/dL (10.9-14.3); LYMPHOCYTES # (AUTO) 2.3 K/uL (0.8-4.8); MEAN CORPUSCULAR HGB CONC 33 g/dL (32.3-35.6); MEAN CORPUSCULAR VOLUME 90.7 fL (75.5-95.3); MONOCYTES # (AUTO) 0.9 K/uL (0.1-1.30); MONOCYTES % (AUTO) 9.6 % (0.0-11.0); NEUTROPHILS # (AUTO) 5.2 K/uL (1.8-8.9); NEUTROPHILS % (AUTO) 58.8 % (38.5-71.5); PLATELET COUNT (AUTO) 337 K/uL (179-408); RED BLOOD CELL COUNT(AUTO) 3.49 MIL/uL (3.63-4.92); RED CELL DISTRIBUTION WIDTH 16.2 % (12.3-17.7); WHITE BLOOD COUNT (AUTO) 8.9 K/uL (3.8-11.8)
[2023-04-30 06:32] LABS: ALANINE AMINOTRANSFERASE 19 U/L (14-59); ALBUMIN 2.8 g/dL (3.4-5.0); ALKALINE PHOSPHATASE 137 U/L (50-136); ASPARTATE AMINOTRANSFERASE 7 U/L (15-37); BILIRUBIN,TOTAL 0.2 mg/dL (0.2-1.0); CALCIUM 8.9 mg/dL (8.5-10.1); CARBON DIOXIDE 29 mmol/L (21-32); CHLORIDE 105 mmol/L (98-107); CREATININE 1.5 mg/dL (0.6-1.3); GLUCOSE 130 mg/dL (74-106); MAGNESIUM 1.9 mg/dL (1.8-2.4); PHOSPHOROUS 4.4 mg/dL (2.5-4.9); SODIUM SERUM 141 mmol/L (136-145); TOTAL PROTEIN, SERUM 6.6 g/dL (6.4-8.2); UREA NITROGEN, BLOOD 33 mg/dL (7-18)
[2023-04-30 06:50] LABS: DIFFERENTIAL COMMENT 1
[2023-04-30] MEDS: BUDESONIDE 0.5 MG/2 ML NEBU IH SCH ×2 (08:11→20:25)
[2023-04-30] MEDS: OXYCODONE HCL 5 MG TABLET PO SCH ×2 (08:41→13:12)
[2023-04-30] MEDS: TOLTERODINE LA 2 MG CAP.SR.24H PO SCH (09:24)
[2023-04-30] MEDS: CLOPIDOGREL 75 MG TABLET PO SCH (09:24)
[2023-04-30] MEDS: CITALOPRAM 20 MG TABLET PO SCH (09:24)
[2023-04-30] MEDS: ASPIRIN EC 81 MG TABLET.DR PO SCH (09:25)
[2023-04-30] MEDS: AMLODIPINE 5 MG TABLET PO SCH (09:25)
[2023-04-30] MEDS: CALCIUM CARB/VITAMIN D 500MG-200UNITS TABLET PO SCH ×2 (09:25→17:11)
[2023-04-30] MEDS: METOPROLOL SUCCINATE XL 50 MG TAB.SR.24H PO SCH (09:25)
[2023-04-30] MEDS: MIRALAX 17 GM POWD.PACK PO SCH (09:25)
[2023-04-30] MEDS: MEMANTINE HCL 10 MG TABLET PO SCH (09:25)
[2023-04-30] MEDS: ENOXAPARIN SODIUM 30 MG/0.3 ML DISP.SYRIN SUBCUT SCH (09:26)
[2023-04-30] MEDS: NICOTINE 21 MG/24HR PATCH TD SCH (09:26)
[2023-04-30] MEDS: NEPRO (VANILLA) 237 ML CAN PO SCH (09:37)
[2023-04-30] MEDS: CEFTRIAXONE 1 G in IV DEXTROSE 5% 50 ML IV SCH (16:43)
[2023-04-30] MEDS: BISACODYL 10 MG SUPP.RECT RC PRN (16:51)
[2023-04-30] MEDS: MEMANTINE HCL 5 MG TABLET PO SCH (17:11)
[2023-04-30] MEDS: MAGNESIUM OXIDE 400 MG TABLET PO SCH (22:00)
[2023-05-01] VITALS (11 sets, daily range): BP systolic 119–167; BP diastolic 53–60; TEMP 97.9–98.4; O2SAT 95–100
[2023-05-01] MEDS: ALBUTEROL SULFATE 2.5 MG/ 0.5 ML NEBU IH SCH ×4 (00:47→19:52)
[2023-05-01] MEDS: IPRATROPIUM BROMIDE 0.5 MG/2.5 ML NEBU NEB SCH ×4 (00:47→19:52)
[2023-05-01] MEDS: PANTOPRAZOLE SODIUM 40 MG TABLET.DR PO SCH (07:10)
[2023-05-01] MEDS: CALCIUM CARB/VITAMIN D 500MG-200UNITS TABLET PO SCH ×2 (08:27→17:25)
[2023-05-01] MEDS: CITALOPRAM 20 MG TABLET PO SCH (08:27)
[2023-05-01] MEDS: CLOPIDOGREL 75 MG TABLET PO SCH (08:27)
[2023-05-01] MEDS: TOLTERODINE LA 2 MG CAP.SR.24H PO SCH (08:27)
[2023-05-01] MEDS: MEMANTINE HCL 10 MG TABLET PO SCH (08:27)
[2023-05-01] MEDS: OXYCODONE HCL 5 MG TABLET PO SCH ×2 (08:28→12:32)
[2023-05-01] MEDS: ASPIRIN EC 81 MG TABLET.DR PO SCH (08:28)
[2023-05-01] MEDS: NICOTINE 21 MG/24HR PATCH TD SCH (08:29)
[2023-05-01] MEDS: AMLODIPINE 5 MG TABLET PO SCH (08:29)
[2023-05-01] MEDS: METOPROLOL SUCCINATE XL 50 MG TAB.SR.24H PO SCH (08:29)
[2023-05-01] MEDS: MIRALAX 17 GM POWD.PACK PO SCH (08:29)
[2023-05-01] MEDS: ENOXAPARIN SODIUM 30 MG/0.3 ML DISP.SYRIN SUBCUT SCH (08:31)
[2023-05-01] MEDS: BUDESONIDE 0.5 MG/2 ML NEBU IH SCH ×2 (08:40→19:52)
[2023-05-01] MEDS: NEPRO (VANILLA) 237 ML CAN PO SCH (09:08)
[2023-05-01] MEDS: CEFTRIAXONE 1 G in IV DEXTROSE 5% 50 ML IV SCH (16:44)
[2023-05-01] MEDS: MEMANTINE HCL 5 MG TABLET PO SCH (17:25)
[2023-05-01] MEDS: NYSTATIN POWDER 15 GM BOTTLE TOP SCH (17:25)
[2023-05-01] MEDS: MAGNESIUM OXIDE 400 MG TABLET PO SCH (21:13)
[2023-05-02] VITALS (11 sets, daily range): BP systolic 137–161; BP diastolic 54–64; TEMP 97.8–98.6; O2SAT 95–99
[2023-05-02] MEDS: ALBUTEROL SULFATE 2.5 MG/ 0.5 ML NEBU IH SCH ×4 (00:43→19:24)
[2023-05-02] MEDS: IPRATROPIUM BROMIDE 0.5 MG/2.5 ML NEBU NEB SCH ×4 (00:43→19:24)
[2023-05-02] MEDS: PANTOPRAZOLE SODIUM 40 MG TABLET.DR PO SCH (06:49)
[2023-05-02] MEDS: BUDESONIDE 0.5 MG/2 ML NEBU IH SCH ×2 (07:30→19:24)
[2023-05-02 07:39] LABS: ALANINE AMINOTRANSFERASE 17 U/L (14-59); ALBUMIN 2.9 g/dL (3.4-5.0); ALKALINE PHOSPHATASE 130 U/L (50-136); ASPARTATE AMINOTRANSFERASE 13 U/L (15-37); BILIRUBIN,TOTAL 0.2 mg/dL (0.2-1.0); CALCIUM 8.8 mg/dL (8.5-10.1); CARBON DIOXIDE 29 mmol/L (21-32); CHLORIDE 104 mmol/L (98-107); CREATININE 1.3 mg/dL (0.6-1.3); GLUCOSE 127 mg/dL (74-106); PHOSPHOROUS 4.1 mg/dL (2.5-4.9); POTASSIUM 3.8 mmol/L (3.5-5.1); SODIUM SERUM 140 mmol/L (136-145); TOTAL PROTEIN, SERUM 6.8 g/dL (6.4-8.2); UREA NITROGEN, BLOOD 22 mg/dL (7-18)
[2023-05-02 07:40] LABS: BASOPHILS # (AUTO) 0.1 K/UL (0.0-0.2); BASOPHILS % (AUTO) 1.1 % (0.0-2.0); EOSINOPHILS # (AUTO) 0.2 K/uL (0.0-0.7); EOSINOPHILS % (AUTO) 2.7 % (0.0-7.0); HEMATOCRIT 31.8 % (31.2-41.9); HEMOGLOBIN 10.6 g/dL (10.9-14.3); LYMPHOCYTES # (AUTO) 1.8 K/uL (0.8-4.8); MEAN CORPUSCULAR HEMOGLOBIN 30.1 uug (24.7-32.8); MEAN CORPUSCULAR HGB CONC 34 g/dL (32.3-35.6); MEAN CORPUSCULAR VOLUME 89.9 fL (75.5-95.3); MONOCYTES # (AUTO) 0.7 K/uL (0.1-1.30); MONOCYTES % (AUTO) 8.1 % (0.0-11.0); NEUTROPHILS # (AUTO) 5.5 K/uL (1.8-8.9); NEUTROPHILS % (AUTO) 66.1 % (38.5-71.5); PLATELET COUNT (AUTO) 324 K/uL (179-408); RED BLOOD CELL COUNT(AUTO) 3.53 MIL/uL (3.63-4.92); WHITE BLOOD COUNT (AUTO) 8.3 K/uL (3.8-11.8)
[2023-05-02 07:44] LABS: DIFFERENTIAL COMMENT 1
[2023-05-02] MEDS: ASPIRIN EC 81 MG TABLET.DR PO SCH (09:19)
[2023-05-02] MEDS: CLOPIDOGREL 75 MG TABLET PO SCH (09:19)
[2023-05-02] MEDS: CITALOPRAM 20 MG TABLET PO SCH (09:19)
[2023-05-02] MEDS: TOLTERODINE LA 2 MG CAP.SR.24H PO SCH (09:20)
[2023-05-02] MEDS: MEMANTINE HCL 10 MG TABLET PO SCH (09:20)
[2023-05-02] MEDS: CALCIUM CARB/VITAMIN D 500MG-200UNITS TABLET PO SCH ×2 (09:20→17:18)
[2023-05-02] MEDS: AMLODIPINE 5 MG TABLET PO SCH (09:21)
[2023-05-02] MEDS: ENOXAPARIN SODIUM 30 MG/0.3 ML DISP.SYRIN SUBCUT SCH (09:41)
[2023-05-02] MEDS: OXYCODONE HCL 5 MG TABLET PO SCH ×2 (09:42→13:00)
[2023-05-02] MEDS: NYSTATIN POWDER 15 GM BOTTLE TOP SCH ×2 (09:44→17:19)
[2023-05-02] MEDS: MIRALAX 17 GM POWD.PACK PO SCH (09:45)
[2023-05-02] MEDS: NICOTINE 21 MG/24HR PATCH TD SCH (09:45)
[2023-05-02] MEDS: METOPROLOL SUCCINATE XL 50 MG TAB.SR.24H PO SCH (09:48)
[2023-05-02] MEDS: NEPRO (VANILLA) 237 ML CAN PO SCH (10:12)
[2023-05-02] MEDS: MEMANTINE HCL 5 MG TABLET PO SCH (17:19)
[2023-05-02] MEDS: MAGNESIUM OXIDE 400 MG TABLET PO SCH (21:25)
[2023-05-03] VITALS (8 sets, daily range): BP systolic 104–140; BP diastolic 33–64; TEMP 97.8–98.4; O2SAT 93–100
[2023-05-03] MEDS: IPRATROPIUM BROMIDE 0.5 MG/2.5 ML NEBU NEB SCH ×4 (01:30→19:21)
[2023-05-03] MEDS: ALBUTEROL SULFATE 2.5 MG/ 0.5 ML NEBU IH SCH ×4 (01:30→19:21)
[2023-05-03] MEDS: PANTOPRAZOLE SODIUM 40 MG TABLET.DR PO SCH (06:17)
[2023-05-03] MEDS: BUDESONIDE 0.5 MG/2 ML NEBU IH SCH ×2 (07:30→19:31)
[2023-05-03] MEDS: OXYCODONE HCL 5 MG TABLET PO SCH ×2 (09:11→13:07)
[2023-05-03] MEDS: CLOPIDOGREL 75 MG TABLET PO SCH (09:13)
[2023-05-03] MEDS: CITALOPRAM 20 MG TABLET PO SCH (09:14)
[2023-05-03] MEDS: ERGOCALCIFEROL 50,000 UNIT CAPSULE PO SCH (09:14)
[2023-05-03] MEDS: AMLODIPINE 5 MG TABLET PO SCH (09:14)
[2023-05-03] MEDS: MEMANTINE HCL 10 MG TABLET PO SCH (09:14)
[2023-05-03] MEDS: METOPROLOL SUCCINATE XL 50 MG TAB.SR.24H PO SCH (09:14)
[2023-05-03] MEDS: MIRALAX 17 GM POWD.PACK PO SCH (09:15)
[2023-05-03] MEDS: NICOTINE 21 MG/24HR PATCH TD SCH (09:17)
[2023-05-03] MEDS: ENOXAPARIN SODIUM 30 MG/0.3 ML DISP.SYRIN SUBCUT SCH (09:17)
[2023-05-03] MEDS: NYSTATIN POWDER 15 GM BOTTLE TOP SCH ×2 (10:39→18:46)
[2023-05-03] MEDS: NEPRO (VANILLA) 237 ML CAN PO SCH (10:40)
[2023-05-03] MEDS: TOLTERODINE LA 2 MG CAP.SR.24H PO SCH (10:40)
[2023-05-03] MEDS: CALCIUM CARB/VITAMIN D 500MG-200UNITS TABLET PO SCH ×2 (10:40→18:45)
[2023-05-03] MEDS: ASPIRIN EC 81 MG TABLET.DR PO SCH (10:40)
[2023-05-03] MEDS: MEMANTINE HCL 5 MG TABLET PO SCH (18:45)
[2023-05-03] MEDS: MAGNESIUM OXIDE 400 MG TABLET PO SCH (21:42)
[2023-05-03] MEDS: HYDROCODONE/APAP 10-325 MG TABLET PO PRN (21:47)
[2023-05-04] VITALS (8 sets, daily range): BP systolic 120–129; BP diastolic 50–54; TEMP 97.7–98.5; O2SAT 94–99
[2023-05-04] MEDS: IPRATROPIUM BROMIDE 0.5 MG/2.5 ML NEBU NEB SCH ×4 (01:23→20:27)
[2023-05-04] MEDS: ALBUTEROL SULFATE 2.5 MG/ 0.5 ML NEBU IH SCH ×4 (01:23→20:28)
[2023-05-04] MEDS: PANTOPRAZOLE SODIUM 40 MG TABLET.DR PO SCH (06:49)
[2023-05-04] MEDS: BUDESONIDE 0.5 MG/2 ML NEBU IH SCH ×2 (07:30→20:27)
[2023-05-04] MEDS: NICOTINE 21 MG/24HR PATCH TD SCH (08:35)
[2023-05-04] MEDS: TOLTERODINE LA 2 MG CAP.SR.24H PO SCH (08:35)
[2023-05-04] MEDS: OXYCODONE HCL 5 MG TABLET PO SCH ×2 (08:36→09:00)
[2023-05-04] MEDS: MEMANTINE HCL 10 MG TABLET PO SCH (08:37)
[2023-05-04] MEDS: ASPIRIN EC 81 MG TABLET.DR PO SCH (08:37)
[2023-05-04] MEDS: CITALOPRAM 20 MG TABLET PO SCH (08:37)
[2023-05-04] MEDS: CLOPIDOGREL 75 MG TABLET PO SCH (08:37)
[2023-05-04] MEDS: CALCIUM CARB/VITAMIN D 500MG-200UNITS TABLET PO SCH ×2 (08:37→17:21)
[2023-05-04] MEDS: METOPROLOL SUCCINATE XL 50 MG TAB.SR.24H PO SCH (08:40)
[2023-05-04] MEDS: AMLODIPINE 5 MG TABLET PO SCH (08:40)
[2023-05-04] MEDS: ENOXAPARIN SODIUM 30 MG/0.3 ML DISP.SYRIN SUBCUT SCH (08:40)
[2023-05-04] MEDS: NEPRO (VANILLA) 237 ML CAN PO SCH (08:41)
[2023-05-04] MEDS: MIRALAX 17 GM POWD.PACK PO SCH (08:41)
[2023-05-04] MEDS: NYSTATIN POWDER 15 GM BOTTLE TOP SCH ×2 (08:43→17:21)
[2023-05-04] MEDS: MEMANTINE HCL 5 MG TABLET PO SCH (17:21)
[2023-05-04] MEDS: MAGNESIUM OXIDE 400 MG TABLET PO SCH (20:10)
[2023-05-05] VITALS (7 sets, daily range): BP systolic 131–138; BP diastolic 58–62; TEMP 98.5; O2SAT 97–99
[2023-05-05] MEDS: ALBUTEROL SULFATE 2.5 MG/ 0.5 ML NEBU IH SCH ×3 (01:30→13:19)
[2023-05-05] MEDS: IPRATROPIUM BROMIDE 0.5 MG/2.5 ML NEBU NEB SCH ×3 (01:30→13:18)
[2023-05-05] MEDS: PANTOPRAZOLE SODIUM 40 MG TABLET.DR PO SCH (06:16)
[2023-05-05] MEDS: BUDESONIDE 0.5 MG/2 ML NEBU IH SCH (08:14)
[2023-05-05] MEDS: ENOXAPARIN SODIUM 30 MG/0.3 ML DISP.SYRIN SUBCUT SCH (08:28)
[2023-05-05] MEDS: ASPIRIN EC 81 MG TABLET.DR PO SCH (08:29)
[2023-05-05] MEDS: METOPROLOL SUCCINATE XL 50 MG TAB.SR.24H PO SCH (08:29)
[2023-05-05] MEDS: MEMANTINE HCL 10 MG TABLET PO SCH (08:29)
[2023-05-05] MEDS: AMLODIPINE 5 MG TABLET PO SCH (08:29)
[2023-05-05] MEDS: CLOPIDOGREL 75 MG TABLET PO SCH (08:29)
[2023-05-05] MEDS: CITALOPRAM 20 MG TABLET PO SCH (08:30)
[2023-05-05] MEDS: TOLTERODINE LA 2 MG CAP.SR.24H PO SCH (08:30)
[2023-05-05] MEDS: CALCIUM CARB/VITAMIN D 500MG-200UNITS TABLET PO SCH (08:30)
[2023-05-05] MEDS: OXYCODONE HCL 5 MG TABLET PO SCH (08:30)
[2023-05-05] MEDS: NICOTINE 21 MG/24HR PATCH TD SCH (08:30)
[2023-05-05] MEDS: MIRALAX 17 GM POWD.PACK PO SCH (08:30)
[2023-05-05] MEDS: NEPRO (VANILLA) 237 ML CAN PO SCH (08:31)
[2023-05-05] MEDS: NYSTATIN POWDER 15 GM BOTTLE TOP SCH (08:32)
== END 2023-05-05 14:36 | disposition home health service (06) | DRG 559 ==
PROVIDERS: ADMIT Physical Medicine & Rehabilitation Pain Medicine; ATTEND Physical Medicine & Rehabilitation Pain Medicine
DX: S72.142D Displaced intertrochanteric fracture of left femur, subsequent encounter for closed fracture with routine healing (principal); N17.0 Acute kidney failure with tubular necrosis; D68.59 Other primary thrombophilia; F03.A3 Unspecified dementia, mild, with mood disturbance; S72.122D Displaced fracture of lesser trochanter of left femur, subsequent encounter for closed fracture with routine healing; W18.30XD Fall on same level, unspecified, subsequent encounter; E11.22 Type 2 diabetes mellitus with diabetic chronic kidney disease; E78.5 Hyperlipidemia, unspecified; F32.9 Major depressive disorder, single episode, unspecified; I12.9 Hypertensive chronic kidney disease with stage 1 through stage 4 chronic kidney disease, or unspecified chronic kidney disease; N18.9 Chronic kidney disease, unspecified; I25.10 Atherosclerotic heart disease of native coronary artery without angina pectoris; K21.9 Gastro-esophageal reflux disease without esophagitis; Z95.5 Presence of coronary angioplasty implant and graft; M89.8X9 Other specified disorders of bone, unspecified site; I27.20 Pulmonary hypertension, unspecified; Z87.891 Personal history of nicotine dependence; Z88.0 Allergy status to penicillin; Z79.899 Other long term (current) drug therapy; D64.9 Anemia, unspecified
CPT/HCPCS: 36415; 73502; 76770; 83550; 83735; 83970; 84100; 84155; 84165; 84443; 85025; 94640; 94664; 94760; 97535-GO-CO; A4663; A6209; A6213; J0696; J1650; J1815; J2916; J3590; J7040